=== PATIENT | female | born 1975 | race American Indian/Alaskan Native ===

== ENCOUNTER 2021-08-04 08:14 | Emergency (ER) | payer OTHER ==
[2021-08-04 08:22] VITALS: BP 117/70
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
== END 2021-08-04 09:38 | disposition home or self-care (01) ==
LOC: ED 08:14
DX: S29.012A Strain of muscle and tendon of back wall of thorax, initial encounter (principal); S00.93XA Contusion of unspecified part of head, initial encounter; V87.7XXA Person injured in collision between other specified motor vehicles (traffic), initial encounter; Y93.89 Activity, other specified; Y92.488 Other paved roadways as the place of occurrence of the external cause; Y99.8 Other external cause status
CPT/HCPCS: 99283